=== PATIENT | female | born 1960 | race Caucasian/White ===

== ENCOUNTER 2016-11-23 10:34 | Day surgery (SDC) | payer BC ==
[2016-11-21 13:38] VITALS: BMI 27.5
[2016-11-23] MEDS ORDERED: ROCURONIUM BROMIDE 50 MG/5 ML VIAL ONE (12:09)
[2016-11-23] MEDS ORDERED: LIDOCAINE HCL/PF 2% SDV 5ML VIAL ONE (12:09)
[2016-11-23] MEDS ORDERED: SUCCINYLCHOLINE CHLORIDE 200 MG/10 ML VIAL ONE (12:09)
[2016-11-23] MEDS ORDERED: DEXAMETHASONE SOD PHOSPHATE 4 MG/1 ML VIAL ONE (12:09)
[2016-11-23] MEDS ORDERED: PROPOFOL 20 ML ONE (12:09)
[2016-11-23] MEDS ORDERED: ONDANSETRON 4 MG/2 ML VIAL ONE ×2 (12:09→14:27)
[2016-11-23] MEDS ORDERED: MIDAZOLAM HCL 2 MG/2 ML SINGLE DOSE VIAL ONE (12:19)
[2016-11-23] MEDS ORDERED: ceFAZolin SODIUM 1 GM VIAL ONE (12:51)
[2016-11-23] MEDS ORDERED: NEOSTIGMINE METHYLSULFATE 0.5 MG/ML - 10 ML MDV ONE (13:35)
[2016-11-23] MEDS ORDERED: GLYCOPYRROLATE 0.2 MG/1 ML VIAL ONE (13:36)
--- NOTE | 2016-11-23 14:06 | OP ---
Operative Note - Note: Operative Date: 11/23/16 Pre-Operative Diagnosis: carcinoid tumor/preop chemo therapy Operation: lap cholecystectomy Post-Operative Diagnosis: Same as Pre-op Anesthesia: General Specimens Removed: gall bladder Operative Report Dictated: Yes
[2016-11-23] MEDS ORDERED: ONDANSETRON 4 MG/2 ML VIAL IVPUSH PRN (14:12)
[2016-11-23] MEDS ORDERED: oxyCODONE HCL 5 MG TABLET PO PRN (14:12)
--- NOTE | 2016-11-23 14:16 | SURG ---
Surgery Hydraulic Bull Riveter Operator Note Hydraulic Bull Riveter Operator: Temi Cook PA-C Date of Service: 11/23/16 Diagnosis: metastatic neuroendocrine tumor Procedure: Laprascopic Cholecyctectomy I was present for the entirety of the operative procedure. For further detail, please refer to operative report. Visit type - Case Type Case Type: Scheduled Admission - Emergency Emergency Visit: No - New patient This patient is new to me today: Yes Date on this admission: 11/23/16
[2016-11-23] MEDS: HYDROmorphone HCL CARPU-JECT 1 MG/1 ML DISP.SYRIN IVPUSH PRN ×2 (14:25→14:40)
[2016-11-23] MEDS ORDERED: HYDROmorphone HCL CARPU-JECT 1 MG/1 ML DISP.SYRIN ONE (14:27)
[2016-11-23 15:22] VITALS: TEMP 98
[2016-11-23 16:28] VITALS: PULSE 73
[2016-11-23] MEDS ORDERED: oxyCODONE HCL 5 MG TABLET ONE (16:29)
[2016-11-23 16:57] VITALS: BP 134/88
--- NOTE | 2016-11-24 01:12 | OP ---
DATE OF OPERATION: 11/23/2016 PREOPERATIVE DIAGNOSIS: Carcinoid tumor, prechemotherapy. POSTOPERATIVE DIAGNOSIS: Carcinoid tumor, prechemotherapy. PROCEDURE: Laparoscopic cholecystectomy. ANESTHESIA: General. COMPLICATIONS: None. BLEEDING: Minimal. CONDITION: Patient tolerated the procedure well. SURGEON: Jaylon Carmichael MD INDICATIONS: This is a 56-year-old female with a history of metastatic carcinoid tumor for which she has been scheduled for Octreotide therapy and given the potential complications of sludge, cholestasis, and cholecystitis, it was requested from the oncologist that we perform a prophylactic cholecystectomy. The patient was examined and discussed the findings with her and recommendations. She agreed to proceed with the plan. Medical clearance was obtained. DESCRIPTION OF PROCEDURE: Patient was taken to the operating room and placed in the supine position. After induction of general anesthesia, she was prepped and draped in the usual sterile fashion. At this point, a standard timeout was observed. The operation was begun in the standard Radha technique which was used to enter the peritoneal cavity through a 1-cm incision in the periumbilical space. Insufflation to a pressure of 15 mmHg was accomplished. Under direct visualization, then three 5-mm ports were introduced; 1 in the epigastrium and 2 in the right upper quadrant. The patient was then positioned in a reverse Trendelenburg position. The gallbladder appeared to be relatively normal. It was retracted superiorly and laterally. The infundibulum of the gallbladder was dissected by reflecting the peritoneal lining and exposing the cystic duct and all of the hilar structures. The cystic duct was dissected circumferentially as well as the cystic artery. Care was taken to expose the common bile duct and cystic duct junction. Upon careful skeletonization of the duct and artery and documentation of the critical view of safety, the cystic duct and artery were then doubly ligated and divided with Endoshears. The gallbladder was then dissected with a hook dissector off of the liver bed. At the superior aspect of the liver bed, a very superficial vein was noted within the gallbladder fossa, which began to bleed. We used cautery. This was then oversewn with a 2-0 silk suture. Next, the gallbladder was placed in the EndoCatch bag. Final check for hemostasis was performed with cautery. The gallbladder was brought out through the umbilical port. The ports were removed under direct vision. The fascia at the umbilical port was closed with 0 Vicryl suture. The skin was closed with 4-0 Monocryl. Dermabond was applied. The patient was returned to the recovery room, awake, alert, and in stable condition. The patient tolerated the procedure well. Holley [id number]
--- NOTE | 2016-11-25 13:46 | PATH ---
Surgical Pathology Report Patient Name: DIANE RODRIGUES [facility]. Rec. #: [id number] /Age/Gender: 1960 (Age: 56) / F Account: [id number] Location: [facility] AMBUL[facility]ORY Taken: 11/23/2016 Received: 11/23/2016 Reported: 11/25/2016 Physicians: Jaylon Carmichael M.D. Specimen(s) Received GALLBLADDER Clinical History Neuroendocrine tumor/hydrocytosis Final Diagnosis GALLBLADDER, CHOLECYSTECTOMY: BENIGN GALLBLADDER WITH RARE ROKITANSKY ASCHOFF SINUS FORMATION SUGGESTIVE OF CHRONIC CHOLECYSTITIS. BENIGN PERICYSTIC LYMPH NODE PRESENT. Electronically Signed Raimundo Borges M.D. Gross Description Received in formalin, labeled "gallbladder," is an 8.5 x 2.5 x 2.5 cm. gallbladder with a 0.2 cm. in length portion of cystic duct attached. There is a 0.6 x 0.3 x 0.2 cm archer possible periductal lymph node present. The outer surface is archer- green with a focal defect and varies from smooth to shaggy. The lumen contains green, tenacious bile. No choleliths are identified within the lumen or the container. The mucosa is dark green and velvety. The wall of the gallbladder measures 0.1 cm. in thickness. Bottom Buffer sections are submitted in one cassette. 11/24/2016 [facility]11/24/2016
== END 2016-11-23 17:49 | disposition home or self-care (01) ==
LOC: FASU 10:34
PROVIDERS: ATTEND Surgery
PROC: 0FT44ZZ Resection of Gallbladder, Percutaneous Endoscopic Approach (ICD-10-PCS; principal; 2016-11-23 12:58)
DX: C7B.00 Secondary carcinoid tumors, unspecified site (principal); Z40.09 Encounter for prophylactic removal of other organ; Z85.89 Personal history of malignant neoplasm of other organs and systems
CPT/HCPCS: 88304-TC; 94760